=== PATIENT | male | born 1975 | race Caucasian/White ===

== ENCOUNTER 2022-12-27 08:56 | Emergency (ER) | payer OTHER, SELFPAY ==
[2022-12-27] VITALS (44 sets, daily range): BP systolic 147–205; BP diastolic 69–103; PULSE 51–72; RESP 11–21; TEMP 36.6; O2SAT 97–100
--- NOTE | ~2022-12-27 | XR_ITS ---
Clinical Indication: Chest pain PA and lateral views of the chest: Comparison: None Findings: There are possible minimal central congestive changes. No consolidation or pleural effusion . Cardiomediastinal silhouette is within normal limits. Bones and soft tissues are unremarkable. Impression: Possible minimal central congestive change. Reviewed, dictated and finalized at location . Impression: Possible minimal central congestive change.
--- NOTE | 2022-12-27 09:06 | ECG_ITS ---
Measurements Intervals [place] Rate: 66 P: 34 DE: 197 QRS: -20 QRSD: 115 T: 17 QT: 407 QTc: 429 Interpretive Statements SINUS RHYTHM WITH OCCASIONAL VENTRICULAR PREMATURE COMPLEXES POSSIBLE LEFT VENTRICULAR HYPERTROPHY [VOLTAGE CRITERIA PLUS LAE OR QRS WIDENING] NO PREVIOUS ECG AVAILABLE FOR COMPARISON Electronically Signed On 12-27-2022 16:22:25 CDT by Gilda Betts M.D.
[2022-12-27 09:14] LABS: Basophils Percent Auto 0.3 % (0.2-1.2); Eosinophils Percent Auto 0.6 % (0-4.4); Hematocrit 44.1 % (42.0-52.0); Hemoglobin 14.5 g/dL (14.0-18.0); Immature Granulocyte Absolute 0.02 K/mm3 (0.00-0.031); Immature Granulocyte Percent A 0.3 % (0-0.5); Lymphocytes Absolute Auto 2.01 K/mm3 (0.9-3.2); Mean Corpuscular HGB Conc 32.9 g/dl (32-36); Mean Corpuscular Hemoglobin 30.3 pg (26-34); Mean Corpuscular Volume 92.3 fl (80-100); Mean Platelet Volume 9.6 fl (7.4-10.4); Monocytes Absolute Auto 0.8 K/mm3 (0.1-0.6); Monocytes Percent Auto 12.7 % (2.6-8.5); Neutrophils Absolute Auto 3.4 K/mm3 (1.3-6.7); Neutrophils Percent Auto 54.1 % (45.5-73.1); Platelet Count Result 279 k/mm3 (150-375); Red Blood Count 4.78 M/mm3 (4.6-6.20); Red Cell Distribution Width 12.6 % (11.5-14.5); White Blood Count 6.3 K/mm3 (4.5-10.0)
[2022-12-27 09:23] LABS: Alanine Aminotransferase 53 U/L (6-50); Albumin Level 4.8 g/dL (3.5-5.1); Alkaline Phosphatase 75 U/L (38-126); Anion Gap 10 mmol/L (8-16); Aspartate Amino Transferase 43 U/L (17-59); Bilirubin,Total 0.7 mg/dL (0.2-1.3); Blood Urea Nitrogen 16 mg/dL (9-20); Calcium 9.6 mg/dL (8.4-10.2); Carbon Dioxide 28 mmol/L (22-30); Chloride 102 mmol/L (98-107); Estimated CRCL calculation 142 ml/min; Estimated Glomerular Filt Rate > 60; Glucose 104 mg/dL (65-110); Lipase 157 U/L (23-300); Potassium 3.8 mmol/L (3.4-5.0); Sodium 140 mmol/L (137-145)
[2022-12-27 09:25] LABS: INR 0.9; Prothrombin Time 12.5 Seconds (11.1-14.7)
[2022-12-27 09:26] LABS: Partial Thromboplastin Time 25.4 SECONDS (22.3-36.8)
[2022-12-27] MEDS: ASPIRIN 81 MG CHEWABLE TABLET 324 MG PO (09:28)
[2022-12-27 09:35] LABS: Troponin I 0.016 ng/mL (0.000-0.034)
--- NOTE | 2022-12-27 10:45 | ED.ARRPALP ---
HPI - Arrhythmia/Palpitations General Chief Complaint: Arrhythmia/Palpitations Stated Complaint: palpitations, htn, low pulse Time Seen by Provider: 12/27/22 09:56 History of Present Illness HPI narrative: Patient is a 47-year-old male presenting with palpitations. 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 States that he had some lightheadedness as well. He went to the school nurse during some free time and she could hear any irregular heartbeat and checked his blood pressure which is high so he was advised to come to the ER. Patient states that he still feels the occasional fluttering but he is starting to feel better. No chest pain or shortness of breath. No leg swelling. States that he had a URI a couple of weeks ago and has still been coughing from this. No fevers or chills, numbness or weakness, abdominal pain, nausea or vomiting, diarrhea, constipation, dysuria. Related Data Allergies Allergy/AdvReac Type Severity Reaction Status Date / Time nickel Allergy Unknown Other Verified 04/13/22 13:48 poison nicolas extract Allergy Unknown Other Verified 04/13/22 13:48 clindamycin Allergy Hives Verified 04/13/22 13:48 Review of Systems Review of Systems: All systems reviewed & are unremarkable except as noted in HPI and below PMFSH Past Medical History Medical History Injury of right hip Right hip pain Social History Social History Smoking status: Unknown if ever smoked Alcohol intake: current Substance use: never Substance use type: does not use Lack of Transportation: No Lack of Food: Never True Current Housing: I Have Housing Concerned About Future Housing: No Difficulty Paying Gas/Electric Bills: No Difficulty Paying for Meds: No Currently Unemployed: No Education: High School Diploma/GED Difficulty w/ Childcare or Family Care: No Living arrangements: with family Occupation/Education: occupation Gender identity (if verbalized by the patient): Male Sexual Orientation (if Verbalized by the Patient): Straight or Heterosexual Exam Narrative: GENERAL: Well-appearing, in no acute distress, pleasant and cooperative HEAD: Normocephalic, atraumatic. EYES: PERRLA and EOMI. ENT: Mucous membranes moist. NECK: Supple. CHEST: Clear to auscultation. No respiratory distress. HEART: Bradycardic, regular rhythm, normal peripheral pulses. ABDOMEN: Soft, nontender, nondistended EXTREMITIES: Normal range of motion. No edema. SKIN: Warm, dry, no rash. NEURO: No focal deficits. Alert and oriented x3. PSYCH: Normal mood and affect. Course Vital Signs Vital signs: Vital Signs Temperature 97.8 F 12/27/22 08:58 Pulse Rate 65 12/27/22 08:58 Respiratory Rate 20 12/27/22 08:58 Blood Pressure 205/69 H 12/27/22 08:58 Pulse Oximetry 100 12/27/22 08:58 Oxygen Delivery Room Air 12/27/22 08:58 Temperature 97.8 F 12/27/22 08:58 Pulse Rate 65 12/27/22 12:52 Respiratory Rate 20 12/27/22 08:58 Blood Pressure 162/98 H 12/27/22 12:52 Pulse Oximetry 100 12/27/22 08:58 Oxygen Delivery Room Air 12/27/22 08:58 MDM - Arrhythmia/Palpitations MDM Narrative Medical decision making narrative: 47-year-old male presenting with palpitations. Patient is hypertensive and a bit bradycardic. Vitals otherwise within normal limits. Exam remarkable for the above. EKG per my interpretation shows normal sinus rhythm, left axis deviation, occasional PVC, no ST elevations or depressions. Lab Data 12/27/22 09:09 12/27/22 09:09 Labs: Lab Results 12/27/22 12/27/22 Range/Units 09:09 11:56 WBC 6.3 (4.5-10.0) K/mm3 RBC 4.78 (4.6-6.20) M/mm3 Hgb 14.5 (14.0-18.0) g/dL Hct 44.1 (42.0-52.0) % MCV 92.3 (80-100) fl MCH 30.3 (26-34) pg
[2022-12-27] MEDS: SODIUM CHLORIDE 0.9% IV 1,000 ML 999 ML IV CONT (10:53)
[2022-12-27 11:08] LABS: Magnesium 1.9 mg/dL (1.6-2.3)
[2022-12-27 12:27] LABS: Troponin I < 0.012 ng/mL (0.000-0.034)
== END 2022-12-27 13:34 | disposition home or self-care (01) ==
PROVIDERS: Emergency Provider Emergency Medicine; PCP Family Medicine
DX: R00.2 Palpitations (principal); I49.40 Unspecified premature depolarization
CPT/HCPCS: 36415; 71046; 80053; 83690; 83735; 84484; 85025; 85610; 85730; 93005; 96360; 99284; A9270; J7030

== ENCOUNTER 2024-07-10 08:57 | Outpatient (CLI) | payer OTHER, SELFPAY ==
--- NOTE | ~2024-07-10 | XR_ITS ---
EXAMINATION: XR lg joint inject/asp add, XR lg joint inject/asp w image DATE: 07/10/2024 10:21 INDICATION: Bilateral hip osteoarthritis with pain TECHNIQUE: A time-out was performed to verify the patient's name, date of , and procedure to b e performed. The procedure including the risks, benefits, and alternatives was discussed with the pat ient. Risks discussed included bleeding and infection. The patient understood the risks and agreed to proceed. Attention was first turned to the right hip. The skin overlying the right hip joint was pre pped and draped in usual sterile fashion. Anesthetic was administered with 1% lidocaine subcutaneous ly. A 22 G needle was advanced under fluoroscopic guidance into the joint. Injection of 1 mL of Omn ipaque 240 confirmed intra-articular position of the needle. Subsequently, injectate consisting of 5 mm a 4:1 mixture of 1% lidocaine: 40 mg/mL Depo-Medrol for a total dosage of 40 mg Depo-Medrol was i nstilled. Washout of contrast was seen confirming intra-articular administration. The needle was jose shanna and the entry site was cleaned and dressed. Attention was then turned to the left hip. The skin overlying the left hip joint was prepped and drap ed in usual sterile fashion. Anesthetic was administered with 1% lidocaine subcutaneously. A 22 G n eedle was advanced under fluoroscopic guidance into the joint. Injection of 1 mL of Omnipaque 240 co nfirmed intra-articular position of the needle. Subsequently, injectate consisting of 5 mm a 4:1 mix ture of 1% lidocaine: 40 mg/mL Depo-Medrol for a total dosage of 40 mg Depo-Medrol was instilled. Was hout of contrast was seen confirming intra-articular administration. There were no immediate complica tions. Combined fluoroscopy exposure time for both injections was 0.2 minutes. The total number of im ages was 5. FINDINGS: Real-time fluoroscopy demonstrates the needle and injected contrast first in the right hip joint and subsequently in the left hip joint. Patient's pain prior to procedure:5/10. Patient's pain following the procedure: 0/10. IMPRESSION: 1. Successful right hip joint injection of local anesthetic and steroid with decrease in the patient' s presenting pain. 2. Successful left hip joint injection of local anesthetic and steroid with decrease in the patient' s presenting pain. Reviewed, dictated and finalized at location A. IMPRESSION: 1. Successful right hip joint injection of local anesthetic and steroid with de crease in the patient's presenting pain. 2. Successful left hip joint injection of local anesthetic and steroid with de crease in the patient's presenting pain.
--- OUTSIDE RECORDS SUMMARY | 2024-07-10 09:40 | XMS_ITS | Clinical Summary ---
Author Organization [facility] Address [address] [place] [address] Care Team Providers Care P D Driver Name Role Phone Monroe Robison MD Primary Care Provider [phone] Allergies No known active allergies Medications metoprolol succinate ER (TOPROL-XL) 25 MG 24 hr tablet Take 1 tablet (25 mg total) by mouth daily. 04/16/2023 Active lisinopril (PRINIVIL) 20 MG tablet Take 1 tablet (20 mg total) by mouth 2 (two) times a day. 04/27/2023 Active rosuvastatin (CRESTOR) 5 MG tablet Take 1 tablet (5 mg total) by mouth daily. 05/25/2023 Active Resolved Problems Problem Noted Date Diagnosed Date Resolved Date Screening for colon cancer 05/29/2023 0 06/05/2023 Screening for colon cancer 05/29/2023 0 07/17/2023 Immunizations Immunization Administration Dates Next Due MODERNA COVID-19 (12+) MRNA, LNP-S, PF, 100 MCG/ 0.5 ML DOSE 04/15/2020,03/18/2020 Social History Tobacco Use Types Packs/Day Years Used Date Smoking Tobacco: Never Smokeless Tobacco: Never Tobacco Cessation:Counseling Given: Not Answered Alcohol Use Standard Drinks/Week Comments Yes 0 (1 standard drink = 0.6 oz pur e alcohol) socially PHQ-2 Answer Date Recorded Patient Health Questionnaire-2 Score 0 05/26/2023 Sex and Gender Information Value Date Recorded Sex Assigned at Not on file Legal Sex Male 10:39 AM [employer] Gender Identity Not on file Sexual Orientation Not on file Last Filed Vital Signs Vital Sign Reading Time Taken Comments Blood Pressure 120/57 07/14/2023 10:15 AM CDT Pulse 68 07/14/2023 8:31 AM CDT Temperature 36.3 C (97.4 F) 07/14/2023 10:15 AM CDT Respiratory Rate 16 07/14/2023 10:15 AM CDT Oxygen Saturation 99% 07/14/2023 10:15 AM CDT Inhaled Oxygen Concentration - - Weight 154.2 kg (340 lb) 07/03/2023 1:19 PM CDT Height 198.1 cm (6' 6 ) 05/26/2023 2:27 PM [employer] Body Mass Index 39.29 05/26/2023 2:27 PM [employer] Plan of Treatment Health Maintenance Due Date Last Done Comments Annual Physical 1977 Hepatitis C 1992 DTaP, Tdap and Td Vaccines ( 1 - Tdap) 1993 Hepatitis B Vaccines (1 of 3 - 19+ 3-dose series) 1993 COVID-19 Vaccine (3 - 2023-2 5 season) 2023 04/15/2020, 03/18/2020 PHQ-2 (Physician [place]) 03/20/2024 05/26/2023 Colorectal Cancer Screening Colonoscopy (10 Years) 07/13/2033 07/14/2023 Meningococcal B Vaccine Aged Out No l onger eligible based on patient's age to complete this topic Meningococcal Vaccine Aged Out No jaiden domenic eligible based on patient's age to complete this topic Pneumococcal Vaccine: Pediatrics (0 to 5 Years) and At-Risk Patients (6 to 49 Years) Aged Out No longer eligible b ased on patient's age to complete this topic RSV Immunizations Under 20 Months Aged Out No longer eligible b ased on patient's age to complete this topic Insurance [id number] [facility] Care Teams P D Driver Relationship Specialty Start Date End Date Monroe Robison MD [address] [place] [id number] PCP - General FAMILY PRACTICE 02/23/23
== END 2024-07-10 08:58 | disposition home or self-care (01) ==
PROVIDERS: PCP Nurse Practitioner Family
DX: M16.0 Bilateral primary osteoarthritis of hip (principal)
CPT/HCPCS: 20610; 77002; J1010; J2003; Q9966